=== PATIENT | female | born 1955 | race American Indian/Alaskan Native ===

== ENCOUNTER 2016-10-25 11:03 | Day surgery (SDC) | payer BC ==
[2016-10-25 14:02] LABS: INR 1.06 (0.87-1.13)
[2016-10-25 14:03] LABS: Partial Thromboplastin Time 31.1 Sec. (24.2-36.6)
--- NOTE | 2016-10-25 15:30 | XRay Report ---
Left knee 2 views: History: Pain in left knee. Findings: Minimal narrowing of medial and patellofemoral compartment knee joint. Sclerotic articular surfaces with early degenerative changes. More pronounced in the patellofemoral compartment. No fracture. No joint effusion. Impression: Mild arthritic changes medial and patellofemoral compartment knee joint.
--- NOTE | 2016-10-25 15:37 | History and Physical Report ---
History of Present Illness Date of examination: 10/25/16 Chief complaint: unsteady gate History of present illness: chronic Medications and Allergies Allergies Allergy/AdvReac Type Severity Reaction Status Date / Time Sulfa (Sulfonamide Allergy Rash Verified 10/25/16 12:05 Antibiotics) Home Medications Medication Instructions Recorded Confirmed Last Taken Type B Complex 1 tab PO DAILY 10/25/16 10/25/16 10/24/16 History 1 tab Calcium 600 mg PO DAILY 10/25/16 10/25/16 10/24/16 History 600mg Claritin 10 mg PO PRN PRN 10/25/16 10/25/16 10/24/16 History 1 tab Claritin-D 24HR 1 tab PO PRN PRN 10/25/16 10/25/16 10/13/16 History 1 tab Esomeprazole Magnesium [NexIUM] 40 mg PO DAILY 10/25/16 10/25/16 10/25/16 10:00 History 40mg Flexeril 10 MG TAB 10 mg PO TID 10/25/16 10/25/16 10/24/16 History 10mg Flonase 2 puff INTRANASAL DAILY 10/25/16 10/25/16 10/24/16 History 2 puffs Gabapentin [Neurontin] 300 mg PO TID 10/25/16 10/25/16 10/24/16 History 300mg HYDROcodone/APAP 7.5-325 1 tab PO TID 10/25/16 10/25/16 10/25/16 10:15 History 1 tab Vit #105/Iron/FA/Dha 1 tab PO DAILY 10/25/16 10/25/16 10/24/16 History 1 tab Exam Vital Signs Temp Pulse Resp BP Pulse Ox 97.8 F 79 16 138/81 98 10/25/16 13:30 10/25/16 13:30 10/25/16 13:30 10/25/16 13:30 10/25/16 13:30
--- NOTE | 2016-10-25 15:39 | Procedure Note ---
Date of procedure: 10/25/16 Pre-op diagnosis: unsteady gate Post-op diagnosis: same Procedure: lumbar puncture Findings: clear csf Anesthesia: local Surgeon: SATHISH SAAVEDRA Estimated blood loss: none Pathology: list (csf) Specimen disposition: to lab Condition: stable Disposition: observation
--- NOTE | 2016-10-25 15:46 | Fluoroscopy Report ---
Image guided lumbar puncture: Unsteady gait. The patient was placed in a prone position on the fluoroscopic table. The skin was cleansed and draped. 1% Xylocaine used for local anesthesia. Using an 18-gauge needle a successful puncture was made at L3 under fluoroscopic guidance. Clear fluid was removed into 4 separate tubes with an approximate volume of 12 cc. This was sent to the lab for evaluation is requested. No complications encountered.
[2016-10-25 16:09] VITALS: BP 146/82
[2016-10-25 17:35] LABS: Glucose,CSF 71 mg/dL
[2016-10-25 18:46] LABS: Appearance,CSF Clear; White Blood Cell,CSF 0 /mm3 (1-10)
[2016-10-25 18:47] LABS: CSF Diff Status Complete
== END 2016-10-25 16:45 | disposition home or self-care (01) ==
LOC: XRAY 11:03 → CATHLABREC 11:03 → EDSTATUS 12:30 → CATHLABREC 16:45
PROVIDERS: ATTEND Physical Medicine & Rehabilitation
DX: G61.81 Chronic inflammatory demyelinating polyneuritis (principal); Z79.01 Long term (current) use of anticoagulants
CPT/HCPCS: 36415; 62270; 77003; 82947; 84160; 85610; 85730; 87116; 89051

== ENCOUNTER 2017-01-07 12:57 | Outpatient (CLI) | payer BC ==
--- NOTE | 2017-01-08 07:57 | Mammography Report ---
BONE DENSITY STUDY: DEFINITIONS: BMD = Bone Mineral Density T-score = BMD related to mean peak bone mass of young adult (mean expressed in Standard Deviation) Z-score = Age matched BMD expressed in SD World Health Organization (WHO) Diagnostic Criteria Normal T-score > -1 SD Osteopenia T-score between -1 and -2.4 SD Osteoporosis T-score -2.5 SD or below FINDINGS: The weighted average BMD of lumbar spine L1-L4 is 0.967 with a T-score of -2.7. The weighted average BMD of hip is 0.857 with a T-score of -0.7. IMPRESSION: The patient's T-score is diagnostic for normal bone density and low relative risk for fracture. NOTE: BMD is not the only risk factor for fracture; also consider factors such as the patient's age, risk of falling, previous osteoporotic fracture, family history of osteoporotic fractures, current smoker, and low body weight. Fernandez's triangle is a region of interest in femur, predominantly of trabecular bone. It is not a true anatomic site, and [facility] does not recommend its use clinically.
--- NOTE | 2017-01-08 08:45 | Mammography Report ---
Screening mammogram: History left breast cancer, lumpectomy, radiation therapy. Routine views are compared to prior studies dated back to 2014. Postsurgical mild architectural change is identified in the medial left breast with skin thickening. The remainder of the fibroglandular pattern is mostly fatty replaced bilaterally with no interval change is identified compared to prior exam. CAD used. Impression: Stable exam. Recommendation Annual mammogram followup. BI-RADS CATEGORY: 2 = Benign ACR BI-RADS MAMMOGRAPHIC CODES: 0 = Needs additional imaging evaluation; 1 = Negative; 2 = Benign; 3 = Probably benign; 4 = Suspicious; 5 = Malignant; 6 = Known biopsy-proven malignancy COMMENT: 1. Dense breast tissue, i.e., adenosis, fibrocystic changes, etc., may obscure an underlying neoplasm. 2. Approximately 10% of cancers are not detected with mammography. 3. A negative mammography report should not delay biopsy if a clinically suspicious mass is present.
== END 2017-01-07 12:58 | disposition home or self-care (01) ==
LOC: MAMMO 12:57
PROVIDERS: ATTEND Specialist
DX: Z12.31 Encounter for screening mammogram for malignant neoplasm of breast (principal); Z78.0 Asymptomatic menopausal state
CPT/HCPCS: 77080; G0202; 77067

== ENCOUNTER 2017-04-24 14:15 | Outpatient (CLI) | payer BC ==
--- NOTE | 2017-04-24 17:07 | XRay Report ---
FINAL REPORT PROCEDURE: Right wrist. TECHNIQUE: AP and lateral views. HISTORY: Right wrist pain. COMPARISON: No prior studies are available for comparison. FINDINGS: The bones appear intact without fracture or dislocation. There is mild narrowing of the radiocarpal joint. The remaining joint spaces appear satisfactory. The soft tissues are unremarkable. IMPRESSION: Mild osteoarthritis.
== END 2017-04-24 14:16 | disposition home or self-care (01) ==
LOC: XRAY 14:15
PROVIDERS: ATTEND Physical Medicine & Rehabilitation
DX: M19.031 Primary osteoarthritis, right wrist (principal)